=== PATIENT | female | born 1975 | race Caucasian/White ===

== ENCOUNTER 2024-03-14 13:31 | Emergency (ER) | payer OTHER, SELFPAY ==
[2024-03-14 13:32] VITALS: BP 145/93; PULSE 125; RESP 16; TEMP 36.8; O2SAT 100; BMI 22.8
--- NOTE | 2024-03-14 14:44 | EKG12_ITS ---
Test Reason : HEADACH Blood Pressure : / mmHG Vent. Rate : 087 BPM Atrial Rate : 087 BPM P-R Int : 108 ms QRS Dur : 088 ms QT Int : 362 ms P-R-T Axes : 042 085 -20 degrees QTc Int : 435 ms Sinus rhythm with short GA T wave abnormality, consider anterior ischemia Abnormal ECG Confirmed by Ranjit Dejesus ([id number]), news assignment editor CHARLY MONROY ([id number]) on 03/15/2024 9:58:38 AM Referred By: Confirmed By:Ranjit Dejesus
--- NOTE | 2024-03-14 14:48 | EX.ED.DYSGE1 ---
HPI <LEANDRO Martin - Last Filed: 03/14/24 16:59> History of Present Illness Chief Complaint: Headache Narrative Narrative: Patient is a 48-year-old female with history of DC, CAD, tobacco use who drinks 3-4 times a week, who currently stopped taking her cholesterol medicine presents to the emergency department with complaints of headache worse over the last 2 days. Patient dates has been feeling some headache for 3 days however over the last 48 hours, the pressure in her forehead, behind her eyes has been significant. Patient dates she feels intermittently nauseated. She states that sometimes she does have shaking that has been ongoing however it has been worse over the last 2 days. She states she has full body achiness, she denies any fevers, denies any chills. Denies any upper or lower extremity weakness. PFSH <LEANDRO Martin - Last Filed: 03/14/24 16:59> PFSH Allergy/AdvReac Type Severity Reaction Status Date / Time No Known Allergies Allergy Verified 03/14/24 13:32 Social History Smoking Status: Never smoker ROS <LEANDRO Martin - Last Filed: 03/14/24 16:59> ROS ED ROS Narrative Constitutional: Negative for fever, chills, weight loss. Positive for feeling fatigued Eyes: Negative for vision loss, vision change, double vision. Positive for pain behind her eyes ENT: Negative for any sore throat, ear pain, congestion Cardiovascular: Negative for any chest pain, tightness, palpitations Respiratory: Negative for any cough, sputum production, hemoptysis, dyspnea, dyspnea on exertion, orthopnea Gastrointestinal: Negative for any abdominal pain, nausea, vomiting, diarrhea, constipation, blood in stool, blood in vomit : Negative for any urinary frequency, dysuria, retention, blood in urine Muscle skeletal: Negative for any neck pain, back pain Neurological: Negative for any syncope, dizziness. Positive for headache Skin: Negative for any rashes, itching, abrasions, lacerations Psychiatric: Negative for any depression, anxiety, stress, suicidal ideation, homicidal ideation Hematologic: Negative for any excessive bruising, easy bleeding EXAM <LEANDRO Martin - Last Filed: 03/14/24 16:59> Physical Exam Narrative Exam Narrative: Vital signs reviewed. HEET: Head normocephalic atraumatic, TMs clear bilaterally. Posterior pharynx is clear, moist mucous membranes. Nares clear bilaterally. Pupils are equal round reactive to light, negative for any hemotympanum, septal hematoma. Patient has no nystagmus. Neck: Supple with no lymphadenopathy or tenderness. No signs of meningismus. Cardiac: Tachycardic rate no murmurs gallops or rubs, equal peripheral pulses bilaterally. Respiratory: Lungs clear to auscultation bilaterally. No chest tenderness. Abdomen: Soft, nontender, nondistended. No abdominal bruit or pulsatile masses. No hepatosplenomegaly Extremities: No peripheral edema, no signs of gross trauma or deformity. Active full range of motion of all extremities. Neuro: Cranial nerves II through XII intact, no focal neurological deficits. Skin: Clean dry and intact with no rash, purpura, petechiae, vesicles or pustules. Backs/flank: No CVA tenderness, no midline spinal tenderness, no deformity. Psych: Normal mood and affect. No SI, HI or acute psychosis. Const Vital Signs: 03/14/24 13:32 03/14/24 15:31 Temperature 98.3 F Temperature Source Temporal Pulse Rate 125 H 79 Respiratory Rate 16 16 Blood Pressure 145/93 H 136/77 H Blood Pressure Mean 110 96 Pulse Ox 100 98 Oxygen Delivery Method Room Air Room Air Positive well nourished and well developed General Appearance ED: well developed <Dr. Mark Mcnally DO - Last Filed: 03/14/24 17:12> Physical Exam Const Vital Signs: 03/14/24 13:32 03/14/24 15:31 Temperature 98.3 F Temperature Source Temporal Pulse Rate 125 H 79 Respiratory Rate 16 16 Blood Pressure 145/93 H 136/77 H Blood Pressure Mean 110 96 Pulse Ox 100 98 Oxygen Delivery Method Room Air Room Air MDM <LEANDRO Martin - Last Filed: 03/14/24 16:59> [facility] Lab Data Labs: Laboratory Results - last 24 hr 03/14/24 14:58 WBC 7.7 RBC 4.06 L Hgb 13.9 Hct 40.0 MCV 98.5 MCH 34.2 H MCHC 34.8 RDW Std Deviation 48.2 H RDW Coeff of Kavita 13.4 Plt Count 156 MPV 10.4 Immature Gran % (Auto) 0.400 Neut % (Auto) 59.5 Lymph % (Auto) 21.7 [place] % (Auto) 17.2 H Eos % (Auto) 0.4 Baso % (Auto) 0.8 Absolute Neuts (auto) 4.6 Absolute Lymphs (auto) 1.67 Nucleated RBC % 0 Sodium 133 L Potassium 3.5 Chloride 100 Carbon Dioxide 25.0 Anion Gap 8 BUN 7 Creatinine 0.76 Estim Creat Clear Calc 82.90 Est GFR (MDRD) Af Amer 103 Est GFR (MDRD) Non-Af 85 BUN/Creatinine Ratio 9.2 L Glucose 151 H Calcium 9.5 Total Bilirubin 1.90 H AST 122 H ALT 81 H Alkaline Phosphatase 85 Troponin I High Sens 3 Total Protein 8.2 Albumin 4.0 Globulin 4.2 Albumin/Globulin Ratio 1.0 Urine Color Yellow Urine Clarity Sl. Cloudy Urine pH 6.0 Ur Specific [place] 1.020 Urine Protein 15 H Urine Glucose (UA) Normal Urine Ketones 150 A* Urine Occult Blood 10 H Urine Nitrite Negative Urine Bilirubin Negative Urine Urobilinogen 1 H Ur Leukocyte Esterase Negative Urine RBC 0-5 SEEN Urine WBC 0 SEEN Ur Squamous Epith Cells 0-5 SEEN Urine Bacteria 1+ Urine Mucus 0 SEEN Radiography Diagnostic Testing: Clinical Impression(s) from Imaging Studies Brain CT 03/14/24 15:25 IMPRESSION: Opacification of the right maxillary sinus. Electronically Signed: Eze Faust MD at 15:39 EDT Reading Location ID and State: [address] [place] [id number] , Service support , EKG Sinus rhythm, T wave abnormality: Attestation: I personally reviewed and interpreted this EKG as follows: Interpretation: Sinus Rhythm Comments: Sinus rhythm with short NH T wave abnormality, rate of 87 bpm, NH 108 ms, QRS duration 88 ms, no acute ST elevation, no acute infarct noted. Treatment and Re-Evaluation :: Patient appears to be in mild distress secondary to pain to her head. Patient's vital signs show a normal BMP, patient is tachycardic. I performed an oral temperature which was 98.1 which is normal. Patient will receive a CT scan of the brain secondary to not having history of headaches. Patient will receive a COVID-19, influenza, or RSV secondary to full body aching. Patient will receive IV fluids, Reglan, Benadryl. Patient is amatory without any difficulty. Patient be reevaluated after the medications. Lab values will also be drawn such as CBC, CMP, lipase. All radiologic examinations were read, reviewed by the emergency department attending. From these reads, a plan of care will be put in place. On reevaluation after medication, the patient felt much better. Patient's urinalysis did show some ketones, no evidence of any UTI. Patient CT scan of the brain showed opacification of the right maxillary sinus, no acute intracranial bleeding. Laboratory values showed a normal CBC, patient's chemistries show glucose of 151, patient's total bili was 1.9, AST of 122 with an ALT of 81, patient's troponin was negative. I do believe that the liver enzymes are slightly elevated secondary to the patient's drinking alcohol. Patient is negative for any COVID-19 influenza or RSV. At this time, there is no evidence of any ACS or DC. There is no evidence of any stroke, intracranial hemorrhage. Patient is instructed to decrease her drinking, to decrease her tobacco use, to follow-up outpatient. She will be given primary care follow-up. Patient is happy with the plan of care, all questions answered given return precautions. <Dr. Mark Mcnally, DO - Last Filed: 03/14/24 17:12> [facility] Lab Data Labs: Laboratory Results - last 24 hr 03/14/24 14:58 WBC 7.7 RBC 4.06 L Hgb 13.9 Hct 40.0 MCV 98.5 MCH 34.2 H MCHC 34.8 RDW Std Deviation 48.2 H RDW Coeff of Kavita 13.4 Plt Count 156 MPV 10.4 Immature Gran % (Auto) 0.400 Neut % (Auto) 59.5 Lymph % (Auto) 21.7 [place] % (Auto) 17.2 H Eos % (Auto) 0.4 Baso % (Auto) 0.8 Absolute Neuts (auto) 4.6 Absolute Lymphs (auto) 1.67 Nucleated RBC % 0 Sodium 133 L Potassium 3.5 Chloride 100 Carbon Dioxide 25.0 Anion Gap 8 BUN 7 Creatinine 0.76 Estim Creat Clear Calc 82.90 Est GFR (MDRD) Af Amer 103 Est GFR (MDRD) Non-Af 85 BUN/Creatinine Ratio 9.2 L Glucose 151 H Calcium 9.5 Total Bilirubin 1.90 H AST 122 H ALT 81 H Alkaline Phosphatase 85 Troponin I High Sens 3 Total Protein 8.2 Albumin 4.0 Globulin 4.2 Albumin/Globulin Ratio 1.0 Urine Color Yellow Urine Clarity Sl. Cloudy Urine pH 6.0 Ur Specific [place] 1.020 Urine Protein 15 H Urine Glucose (UA) Normal Urine Ketones 150 A* Urine Occult Blood 10 H Urine Nitrite Negative Urine Bilirubin Negative Urine Urobilinogen 1 H Ur Leukocyte Esterase Negative Urine RBC 0-5 SEEN Urine WBC 0 SEEN Ur Squamous Epith Cells 0-5 SEEN Urine Bacteria 1+ Urine Mucus 0 SEEN Radiography Diagnostic Testing: Clinical Impression(s) from Imaging Studies Brain CT 03/14/24 15:25 IMPRESSION: Opacification of the right maxillary sinus. Electronically Signed: Eze Faust MD at 15:39 EDT , Treatment and Re-Evaluation :: Patient appears to be in mild distress secondary to pain to her head. Patient's vital signs show a normal BMP, patient is tachycardic. I performed an oral temperature which was 98.1 which is normal. Patient will receive a CT scan of the brain secondary to not having history of headaches. Patient will receive a COVID-19, influenza, or RSV secondary to full body aching. Patient will receive IV fluids, Reglan, Benadryl. Patient is amatory without any difficulty. Patient be reevaluated after the medications. Lab values will also be drawn such as CBC, CMP, lipase. All radiologic examinations were read, reviewed by the emergency department attending. From these reads, a plan of care will be put in place. On reevaluation after medication, the patient felt much better. Patient's urinalysis did show some ketones, no evidence of any UTI. Patient CT scan of the brain showed opacification of the right maxillary sinus, no acute intracranial bleeding. Laboratory values showed a normal CBC, patient's chemistries show glucose of 151, patient's total bili was 1.9, AST of 122 with an ALT of 81, patient's troponin was negative. I do believe that the liver enzymes are slightly elevated secondary to the patient's drinking alcohol. Patient is negative for any COVID-19 influenza or RSV. At this time, there is no evidence of any ACS or DC. There is no evidence of any stroke, intracranial hemorrhage. Patient is instructed to decrease her drinking, to decrease her tobacco use, to follow-up outpatient. She will be given primary care follow-up. Patient is happy with the plan of care, all questions answered given return precautions. ED attending note: I evaluated the patient in conjunction with the ALYSSA. I agree with his/her statements and above findings. I have personally performed a face to face assessment of the patient and have reviewed the ALYSSA Note. I performed a substantive portion of the visit including all aspects of the following. I personally saw the patient performed chart review, physical exam, reviewed labs, imaging (if obtained), and formulated a treatment and management plan. This note was generated with [employer] dictation software. It may contain incorrect words, spelling, and punctuation that were not noted in review of the chart prior to signing. Discharge Plan Triage Chief Complaint: Headache ED Midlevel Provider: Tyshawn Rayo ED Provider: Mark Mcnally Dx/Rx/DC Orders Clinical Impression: Transaminitis, Headache, Tobacco use Instructions: Understanding Headache Pain Primary Care Provider: Care Physician,No Primary Referrals: Delmer Rossi MD [Med Staff - Network Support] - NOT,DEFINED [Non-Staff] - Activity Restrictions/Additional Instructions: Please follow-up with the PCP. Try to decrease your drinking alcohol, as well as decrease your smoking. Return for any worsening symptoms. Disposition Disposition: Home, Self Care
[2024-03-14] MEDS: DiphenhydrAMINE 50 MG/ML Syringe 25 MG IV (15:03)
[2024-03-14] MEDS: Metoclopramide 10 MG/2 ML Vial IV (15:03)
[2024-03-14] MEDS: 0.9% Normal Saline (1000mL) 1,000 ML 1000 ML IV (15:03)
[2024-03-14 15:14] LABS: Mucous, Urine 0 SEEN /hpf (<or=2+); White Blood Cells 0 SEEN /hpf (0-5)
[2024-03-14 15:17] LABS: Absolute Lymphocyte Count 1.67 X10^3/uL (0.83-4.51); Absolute Neutrophil Count 4.6 X10^3/uL (2.0-7.7); Basophil# 0.06 X10^3/uL; Basophil% 0.8 % (0-1); Eosinophil# 0.03 X10^3/uL; Eosinophils% 0.4 % (0-5); Hemoglobin 13.9 g/dL (12.0-15.0); Lymphocyte # 1.67 X10^3/ul (0.83-4.51); Lymphocyte % 21.7 % (19-41); Mean Corp Hgb Conc 34.8 g/dL (32-36); Mean Corpuscular Hgb 34.2 pg (27.0-32.0); Mean Corpuscular Volume 98.5 fL (81-99); Mean Platelet Vol. 10.4 fl (6.2-12.0); Monocyte# 1.32 X10^3/uL; Monocyte% 17.2 % (0-10); NRBC Flagged by Analyzer 0 % (0-5); Neutrophil # 4.57 X10^3/uL (2.7-7.7); Neutrophil % 59.5 % (47-70); Platelet Count 156 K/mm3 (150-450); RBC Distribution Width CV 13.4 % (11.6-14.6); RBC Distribution Width SD 48.2 fl (35.1-43.9); Red Blood Count 4.06 M/mm3 (4.2-5.4); White Blood Count 7.7 K/mm3 (4.4-11.0)
[2024-03-14 15:20] LABS: Color, Urine Yellow (Yellow); Glucose, Dipstick Normal (Normal); Leukocyte Esterase-Dipstick Negative /ul (Negative); Nitrite-Dipstick Negative (Negative); Occult Blood-Urine 10 /ul (Negative); Protein-Dipstick 15 mg/dl (Negative); Urine Bilirubin Dipstick Negative (Negative); Urine Clarity Sl. Cloudy (Clear); Urine Urobilinogen 1 mg/dl (Normal)
[2024-03-14 15:22] LABS: Ketone-Dipstick 150 mg/dl (Negative)
--- NOTE | 2024-03-14 15:25 | CT_ITS ---
STUDY: CT BRAIN WITHOUT CONTRAST REASON FOR EXAM: Female, 48 years old. Headache RADIATION DOSAGE (If Supplied By Facility): CTDIvol = ( 44.99 ) mGy, DLP = ( 796.11 ) mGycm TECHNIQUE: Transaxial CT imaging of the brain was performed without administration of intravenous contrast material. Individualized dose optimization techniques were used for this CT. COMPARISON: No relevant priors. FINDINGS: Normal soft tissue structures. Normal calvarium. Normal size ventricles and extra-axial spaces for the patient''s age. Normal white matter tracts of the cerebral hemispheres. Normal basal ganglia and thalami. Normal brainstem. Normal cerebellum. There is no intracranial hemorrhage. There are no findings of an acute ischemic infarction. There is opacification of the right maxillary sinus. CT/Brain/Head without Contrast IMPRESSION: Opacification of the right maxillary sinus. Electronically Signed: Eze Faust MD at 15:39 EDT ,
[2024-03-14 15:26] LABS: Bacteria 1+ /hpf (None Seen); Red Blood Cells-Urine 0-5 SEEN /hpf (0-5); Squamous Epithelial Cells - UA 0-5 SEEN /hpf (5-10)
[2024-03-14 15:31] VITALS: BP 136/77; PULSE 79; RESP 16; O2SAT 98
[2024-03-14 15:39] LABS: AST(SGOT) 122 U/L (15-37); Alanine Aminotransfer ALT/SGPT 81 U/L (13-56); Alkaline Phosphatase 85 U/L (45-117); Anion Gap 8 (5-15); BUN 7 mg/dL (7-18); BUN/Creat Ratio 9.2 RATIO (10-20); Calcium,Total 9.5 mg/dL (8.5-10.1); Chloride 100 mmol/L (98-107); Creatinine, Serum 0.76 mg/dL (0.55-1.02); EST Glomerular Filtration Rate 85 mL/min (>60); Est Glom Filt Rate - Afr Amer 103 mL/min (>60); Globulin 4.2 g/dL (2.2-4.2); Glucose 151 mg/dL (74-106); Potassium 3.5 mmol/L (3.5-5.1); Protein, Total 8.2 g/dL (6.4-8.2); Sodium Level 133 mmol/L (136-145); Troponin-I HS 3 pg/mL (3.0-54.0)
[2024-03-14] MEDS: Ketorolac 15 MG/ML Vial IV (16:26)
[2024-03-14 17:18] VITALS: BP 140/80; PULSE 82; RESP 16; TEMP 36.8; O2SAT 97
== END 2024-03-14 17:18 | disposition home or self-care (01) ==
PROVIDERS: Nurse Practitioner; Emergency Provider Emergency Medicine; Visit Provider Emergency Medicine
DX: R51.9 Headache, unspecified (principal); R74.01 Elevation of levels of liver transaminase levels; I25.10 Atherosclerotic heart disease of native coronary artery without angina pectoris; I25.2 Old myocardial infarction; F10.90 Alcohol use, unspecified, uncomplicated; F17.200 Nicotine dependence, unspecified, uncomplicated
CPT/HCPCS: 70450; 80053; 81001; 84484; 85025; 87631; 93005; 96361; 96374; 96375; 99282; J7030